=== PATIENT | male | born 1955 | race African-American/Black ===

== ENCOUNTER 2022-02-24 17:10 | Inpatient (IN) | payer BC ==
[2022-02-24 18:01] VITALS: BMI 26.1
[2022-02-24] MEDS ORDERED: ACETAMINOPHEN 325 MG TABLET (FP) PO PRN ×2 (19:21)
[2022-02-24] MEDS ORDERED: LORazepam 1 MG TABLET PO PRN (19:21)
[2022-02-24] MEDS ORDERED: DICYCLOMINE HCL 10 MG CAPSULE PO PRN (19:21)
[2022-02-24] MEDS ORDERED: NALOXONE HCL 0.4 MG/ML VIAL IM PRN (19:21)
[2022-02-24] MEDS ORDERED: BENZOCAINE/MENTHOL (CHLORASEPTIC ) LOZENGE MM PRN (19:21)
[2022-02-24] MEDS ORDERED: MAG HYDROX/AL HYDROX/SIMETH 30 ML UNIT-DOSE CUP PO PRN (19:21)
[2022-02-24] MEDS ORDERED: METHOCARBAMOL 500 MG TABLET PO PRN (19:21)
[2022-02-24] MEDS ORDERED: IBUPROFEN 600 MG TABLET (FP) PO PRN (19:21)
[2022-02-24] MEDS ORDERED: BISMUTH SUBSALICYLATE 524 MG/30 ML PO PRN (19:21)
[2022-02-24] MEDS ORDERED: NALOXONE HCL (KLOXXADO) 8 MG SPRAY NS PRN (19:21)
[2022-02-24] MEDS ORDERED: POLYETHYLENE GLYCOL (HEALTHYLAX) 3350 17 GM PACKET PO PRN (19:21)
[2022-02-24] MEDS ORDERED: MAGNESIUM HYDROX 2400MG/30ML ORAL SUSPENSION 30 ML CUP PO PRN (19:21)
[2022-02-24] MEDS ORDERED: NICOTINE 10 MG CARTRIDGE (INHALER) IH PRN (19:21)
[2022-02-24] MEDS ORDERED: IBUPROFEN 400 MG TABLET (FP) PO PRN (19:21)
[2022-02-24] MEDS ORDERED: LOPERAMIDE HCL 2 MG CAPSULE PO PRN (19:21)
[2022-02-24] MEDS ORDERED: LORazepam 1 MG TABLET ONE (20:41)
[2022-02-24] MEDS ORDERED: MELATONIN 5 MG TABLETS PO SCH (22:00)
[2022-02-24] MEDS ORDERED: THIAMINE HCL 100 MG TABLET (FP) PO SCH (22:00)
[2022-02-24] MEDS: LORazepam 2 MG TABLET PO SCH (22:57)
[2022-02-25] MEDS: LORazepam 2 MG TABLET PO SCH ×3 (06:02→18:12)
[2022-02-25] MEDS ORDERED: PRENATAL VITAMINS W/ FOLIC ACID TABLET (FP) PO SCH (10:00)
[2022-02-25 10:34] LABS: MCH 22.2 pg (25.7-33.7); MCHC 29.3 g/dl (32.0-35.9); MEAN CELL VOLUME 76.1 fl (80-96); PLATELET COUNT 431 10^3/uL (134-434); RBC 2.24 M/mm3 (4.00-5.60); RDW 21.2 % (11.9-15.9)
[2022-02-25 10:41] LABS: WHITE BLOOD COUNT 7.3 K/mm3 (4.0-10.0)
[2022-02-25 10:56] LABS: ALBUMIN 2.2 g/dl (3.4-5.0); BLOOD UREA NITROGEN 12.7 mg/dL (7-18); CALCIUM 7.8 mg/dL (8.5-10.1)
[2022-02-25 10:59] LABS: CREATININE 0.7 mg/dL (0.55-1.3)
[2022-02-25 11:01] LABS: BILIRUBIN,TOTAL 0.6 mg/dL (0.2-1); TOT PROT 6.5 g/dl (6.4-8.2)
[2022-02-25] MEDS ORDERED: cloNIDine HCL 0.1 MG TABLET PO PRN (11:31)
[2022-02-25] MEDS ORDERED: methaDONE HCL 10 MG TABLET (FOR DETOX USE ONLY) PO ONE (12:00)
[2022-02-25 13:02] VITALS: BP 145/65; PULSE 71; RESP 18; TEMP 97.3
[2022-02-26] MEDS ORDERED: LORazepam 1 MG TABLET PO SCH (05:00)
[2022-02-27] MEDS ORDERED: LORazepam 0.5 MG TABLET PO PRN
[2022-02-27] MEDS ORDERED: LORazepam 0.5 MG TABLET PO SCH (05:00)
[2022-02-27] MEDS ORDERED: methaDONE HCL 10 MG TABLET (FOR DETOX USE ONLY) PO ONE (10:00)
[2022-02-28] MEDS ORDERED: LORazepam 0.5 MG TABLET PO ONE (05:00)
[2022-03-01] MEDS ORDERED: methaDONE HCL 10 MG TABLET (FOR DETOX USE ONLY) PO ONE (10:00)
== END 2022-02-25 20:19 | disposition short-term general hospital (02) | DRG 897 ==
LOC: YASAS 17:10 → Y6N 20:07
PROVIDERS: ADMIT Allergy & Immunology; ATTEND Surgery
PROC: HZ2ZZZZ Detoxification Services for Substance Abuse Treatment (ICD-10-PCS; principal; 2022-02-24)
DX: F11.23 Opioid dependence with withdrawal (principal); L97.919 Non-pressure chronic ulcer of unspecified part of right lower leg with unspecified severity; F10.230 Alcohol dependence with withdrawal, uncomplicated; F41.8 Other specified anxiety disorders; D64.9 Anemia, unspecified; I73.89 Other specified peripheral vascular diseases; M54.50 Low back pain, unspecified; G89.29 Other chronic pain; Z28.310 Unvaccinated for COVID-19; Z28.9 Immunization not carried out for unspecified reason; Z59.02 Unsheltered homelessness
CPT/HCPCS: 36415; 80053; 85027; 86780; C9803-CS; U0003; U0005

== ENCOUNTER 2022-02-25 14:17 | Inpatient (IN) | payer BC ==
[2022-02-25 14:58] VITALS: RESP 18; BMI 25.8
[2022-02-25 18:22] LABS: INR 1.18 (0.83-1.09); PROTHROMBIN TIME (PATIENT) 13.6 SEC (9.7-13.0)
[2022-02-25 18:24] LABS: ACTIVATED PTT 28.4 SECONDS (25.2-36.5)
[2022-02-25] MEDS ORDERED: VANCOMYCIN 1,500 MG in DEXTROSE 5%-WATER - 250 ML IVPB ONE (18:39)
[2022-02-25] MEDS ORDERED: CEFAZOLIN 1 GM/D5W 1 GM/50 ML BAG IVPB ONE (18:40)
[2022-02-25 18:55] LABS: BASO % 0.2 % (0-2.0); EOS % 0.7 % (0-4.5); HEMATOCRIT 17.3 % (35.4-49); LYMPH % 22.1 % (8-40); MCHC 29.2 g/dl (32.0-35.9); MEAN CELL VOLUME 75.2 fl (80-96); MEAN PLT VOLUME 6.9 fl (7.5-11.1); MONO % 11.8 % (3.8-10.2); NEUT % 65.2 % (42.8-82.8); PLATELET COUNT 416 10^3/uL (134-434); RDW 21.4 % (11.9-15.9)
[2022-02-25] MEDS ORDERED: ceFAZolin SODIUM 1 GM VIAL ONE (18:57)
[2022-02-25 19:20] LABS: BLOOD UREA NITROGEN 14.2 mg/dL (7-18); HEMOGLOBIN 5.1 GM/dL (11.7-16.9)
[2022-02-25 19:21] LABS: ALBUMIN 2.4 g/dl (3.4-5.0)
[2022-02-25 19:24] LABS: BILIRUBIN,TOTAL 0.2 mg/dL (0.2-1); CREATININE 0.8 mg/dL (0.55-1.3); TOT PROT 6.8 g/dl (6.4-8.2)
[2022-02-25 19:52] LABS: ANISOCYTOSIS 1+; MACROCYTOSIS 0; PLATELET ESTIMATE INCREASED; ROULEAU 2+
[2022-02-25] MEDS ORDERED: VANCOMYCIN HCL 1,500 MG in DEXTROSE 5%-WATER - 250 ML IVPB SCH ×2 (21:52→22:00)
[2022-02-25] MEDS ORDERED: LACTATED RINGERS SOLUTION 1,000 ML/1,000 ML INFUS.BAG IV SCH (23:00)
[2022-02-25] MEDS: PANTOPRAZOLE SODIUM 40 MG VIAL IVPUSH SCH (23:58)
[2022-02-26] MEDS: VANCOMYCIN PREMIX 1.5 GM 1,500 MG/300 ML BAG IVPB SCH ×2 (00:04→08:07)
[2022-02-26] MEDS ORDERED: VANCOMYCIN HCL 1,500 MG in DEXTROSE 5%-WATER - 250 ML IVPB SCH (10:00)
[2022-02-26] MEDS: FOLIC ACID 1 MG TABLET (FP) PO SCH (10:42)
[2022-02-26] MEDS: PANTOPRAZOLE SODIUM 40 MG VIAL IVPUSH SCH ×2 (11:06→21:33)
[2022-02-26] MEDS: THIAMINE HCL 200 MG/2 ML VIAL IVPB SCH (11:07)
[2022-02-26 11:28] LABS: BASO % 0.4 % (0-2.0); EOS % 0.2 % (0-4.5); HEMATOCRIT 23.5 % (35.4-49); HEMOGLOBIN 7.2 GM/dL (11.7-16.9); LYMPH % 18.7 % (8-40); MCH 23.5 pg (25.7-33.7); MCHC 30.7 g/dl (32.0-35.9); MEAN CELL VOLUME 76.6 fl (80-96); MEAN PLT VOLUME 6.9 fl (7.5-11.1); MONO % 7.9 % (3.8-10.2); NEUT % 72.8 % (42.8-82.8); PLATELET COUNT 422 10^3/uL (134-434); RBC 3.06 M/mm3 (4.00-5.60); RDW 21.6 % (11.9-15.9); WHITE BLOOD COUNT 6.7 K/mm3 (4.0-10.0)
[2022-02-26 11:47] LABS: ALBUMIN 2.6 g/dl (3.4-5.0); BLOOD UREA NITROGEN 12.2 mg/dL (7-18); CALCIUM 8.3 mg/dL (8.5-10.1); MAGNESIUM 1.9 mg/dL (1.8-2.4)
[2022-02-26 11:49] LABS: CREATININE 0.8 mg/dL (0.55-1.3); PHOSPHOROUS 2.3 mg/dL (2.5-4.9)
[2022-02-26 11:52] LABS: BILIRUBIN,TOTAL 0.8 mg/dL (0.2-1); TOT PROT 7.6 g/dl (6.4-8.2)
[2022-02-26] MEDS: CEFTRIAXONE 1 GM in DEXTROSE 5%-WATER - 50 ML IVPB SCH (12:07)
[2022-02-26] MEDS ORDERED: cloNIDine HCL 0.1 MG TABLET PO PRN (13:53)
[2022-02-26] MEDS ORDERED: ACETAMINOPHEN 500 MG TABLET (FP) PO PRN (13:56)
[2022-02-26] MEDS ORDERED: TRIMETHOBENZAMIDE HCL 200MG/2ML INJ IM PRN (13:56)
[2022-02-26] MEDS ORDERED: ACETAMINOPHEN 1000 MG/100 ML BAG IVPB PRN (13:56)
[2022-02-26] MEDS: GABAPENTIN 300 MG CAPSULE PO SCH ×2 (14:28→21:31)
[2022-02-26 19:57] LABS: HEMATOCRIT 23.9 % (35.4-49); HEMOGLOBIN 7.3 GM/dL (11.7-16.9); MCH 24.2 pg (25.7-33.7); MCHC 30.6 g/dl (32.0-35.9); MEAN PLT VOLUME 7.3 fl (7.5-11.1); PLATELET COUNT 400 10^3/uL (134-434); RBC 3.03 M/mm3 (4.00-5.60); WHITE BLOOD COUNT 6.5 K/mm3 (4.0-10.0)
[2022-02-26] MEDS: MELATONIN 5 MG TABLETS PO SCH (21:31)
[2022-02-26] MEDS: POLYETHYLENE GLYCOL (HEALTHYLAX) 3350 17 GM PACKET PO SCH (21:43)
[2022-02-27] MEDS: GABAPENTIN 300 MG CAPSULE PO SCH ×2 (09:30→21:43)
[2022-02-27] MEDS: FOLIC ACID 1 MG TABLET (FP) PO SCH (09:31)
[2022-02-27] MEDS: THIAMINE HCL 200 MG/2 ML VIAL IVPB SCH (09:33)
[2022-02-27] MEDS: PANTOPRAZOLE SODIUM 40 MG VIAL IVPUSH SCH ×2 (09:33→21:56)
[2022-02-27] MEDS: POLYETHYLENE GLYCOL (HEALTHYLAX) 3350 17 GM PACKET PO SCH ×2 (09:47→21:55)
[2022-02-27] MEDS ORDERED: methaDONE HCL 10 MG TABLET PO ONE (10:00)
[2022-02-27 10:34] LABS: CALCIUM 8.3 mg/dL (8.5-10.1)
[2022-02-27] MEDS: CEFTRIAXONE 1 GM in DEXTROSE 5%-WATER - 50 ML IVPB SCH (10:35)
[2022-02-27 10:37] LABS: CREATININE 0.8 mg/dL (0.55-1.3)
[2022-02-27] MEDS ORDERED: BISACODYL 5 MG TABLET.DR (FP) PO ONE (16:00)
[2022-02-27] MEDS ORDERED: PEG 3350/NA SULF BICARB CL/KCL 4000 ML SOLN.RECON PO ONE (17:00)
[2022-02-27 17:12] LABS: BASO % 2.5 % (0-2.0); EOS % 1.3 % (0-4.5); HEMATOCRIT 28.8 % (35.4-49); LYMPH % 24.4 % (8-40); MCH 24.5 pg (25.7-33.7); MCHC 31.3 g/dl (32.0-35.9); MEAN CELL VOLUME 78.3 fl (80-96); MEAN PLT VOLUME 7.3 fl (7.5-11.1); NEUT % 55.8 % (42.8-82.8); PLATELET COUNT 412 10^3/uL (134-434); RBC 3.68 M/mm3 (4.00-5.60); RDW 20.4 % (11.9-15.9); WHITE BLOOD COUNT 6.3 K/mm3 (4.0-10.0)
[2022-02-27] MEDS: MELATONIN 5 MG TABLETS PO SCH (21:55)
[2022-02-28] MEDS: CEFTRIAXONE 1 GM in DEXTROSE 5%-WATER - 50 ML IVPB SCH (09:32)
[2022-02-28] MEDS: FOLIC ACID 1 MG TABLET (FP) PO SCH (09:32)
[2022-02-28] MEDS: THIAMINE HCL 200 MG/2 ML VIAL IVPB SCH (09:32)
[2022-02-28] MEDS: POLYETHYLENE GLYCOL (HEALTHYLAX) 3350 17 GM PACKET PO SCH ×2 (09:32→21:30)
[2022-02-28] MEDS: PANTOPRAZOLE SODIUM 40 MG VIAL IVPUSH SCH (09:32)
[2022-02-28] MEDS: GABAPENTIN 300 MG CAPSULE PO SCH ×2 (09:32→21:31)
[2022-02-28 17:12] LABS: BASO % 0.6 % (0-2.0); EOS % 0.7 % (0-4.5); HEMATOCRIT 32.5 % (35.4-49); HEMOGLOBIN 9.9 GM/dL (11.7-16.9); LYMPH % 25.4 % (8-40); MCH 24.4 pg (25.7-33.7); MCHC 30.6 g/dl (32.0-35.9); MEAN CELL VOLUME 79.5 fl (80-96); MEAN PLT VOLUME 7.5 fl (7.5-11.1); MONO % 12.7 % (3.8-10.2); NEUT % 60.6 % (42.8-82.8); PLATELET COUNT 453 10^3/uL (134-434); RBC 4.08 M/mm3 (4.00-5.60); RDW 21.1 % (11.9-15.9); WHITE BLOOD COUNT 6.2 K/mm3 (4.0-10.0)
[2022-02-28 17:40] LABS: CALCIUM 8.3 mg/dL (8.5-10.1)
[2022-02-28 17:44] LABS: CREATININE 0.9 mg/dL (0.55-1.3)
[2022-02-28] MEDS: PANTOPRAZOLE 40 MG TABLET PO SCH (21:32)
[2022-02-28] MEDS: MELATONIN 5 MG TABLETS PO SCH (21:32)
[2022-03-01] MEDS: GABAPENTIN 300 MG CAPSULE PO SCH (09:52)
[2022-03-01] MEDS: CEFTRIAXONE 1 GM in DEXTROSE 5%-WATER - 50 ML IVPB SCH (09:53)
[2022-03-01] MEDS: THIAMINE HCL 200 MG/2 ML VIAL IVPB SCH (09:53)
[2022-03-01] MEDS: PANTOPRAZOLE 40 MG TABLET PO SCH (09:53)
[2022-03-01] MEDS: FOLIC ACID 1 MG TABLET (FP) PO SCH (09:53)
[2022-03-01] MEDS: POLYETHYLENE GLYCOL (HEALTHYLAX) 3350 17 GM PACKET PO SCH (09:54)
[2022-03-01] MEDS ORDERED: methaDONE HCL 10 MG TABLET PO ONE (10:00)
[2022-03-01 10:52] LABS: BASO % 0.3 % (0-2.0); EOS % 0.9 % (0-4.5); HEMATOCRIT 33.3 % (35.4-49); LYMPH % 22.2 % (8-40); MCH 23.9 pg (25.7-33.7); MEAN CELL VOLUME 79.4 fl (80-96); MEAN PLT VOLUME 7.6 fl (7.5-11.1); MONO % 11.8 % (3.8-10.2); NEUT % 64.8 % (42.8-82.8); PLATELET COUNT 476 10^3/uL (134-434); RDW 21.4 % (11.9-15.9); WHITE BLOOD COUNT 6.3 K/mm3 (4.0-10.0)
[2022-03-01 11:21] LABS: ALBUMIN 2.5 g/dl (3.4-5.0); CALCIUM 8.4 mg/dL (8.5-10.1)
[2022-03-01 11:22] LABS: BLOOD UREA NITROGEN 20.1 mg/dL (7-18); MAGNESIUM 2.1 mg/dL (1.8-2.4)
[2022-03-01 11:25] LABS: CREATININE 0.9 mg/dL (0.55-1.3); PHOSPHOROUS 2.5 mg/dL (2.5-4.9)
[2022-03-01 11:26] LABS: BILIRUBIN,TOTAL 0.4 mg/dL (0.2-1); TOT PROT 7.3 g/dl (6.4-8.2)
[2022-03-01 12:18] LABS: ANISOCYTOSIS 3+; MACROCYTOSIS 0; TARGET CELLS 1+
[2022-03-01 17:46] VITALS: BP 120/74; PULSE 60; TEMP 98.4
== END 2022-03-01 18:04 | disposition other institution (70) | DRG 378 ==
LOC: JER 14:17 → JERBED 20:17 → J8W 02-26 02:19
PROVIDERS: ADMIT Internal Medicine; ATTEND Internal Medicine
PROC: 30233N1 Transfusion of Nonautologous Red Blood Cells into Peripheral Vein, Percutaneous Approach (ICD-10-PCS; principal; 2022-02-26)
DX: K92.2 Gastrointestinal hemorrhage, unspecified (principal); D62 Acute posthemorrhagic anemia; L03.116 Cellulitis of left lower limb; L97.919 Non-pressure chronic ulcer of unspecified part of right lower leg with unspecified severity; F19.20 Other psychoactive substance dependence, uncomplicated; R73.9 Hyperglycemia, unspecified; R00.1 Bradycardia, unspecified; F10.20 Alcohol dependence, uncomplicated
CPT/HCPCS: 0241U-QW; 36415; 36430; 80048; 80053; 80307; 82272; 82607; 82728; 83540; 83550; 83615; 83735; 84100; 85025; 85027; 85610; 85730; 86850; 86900; 86901; 86922; 93005; 93010; 99285-25; P9058

== ENCOUNTER 2022-03-01 18:32 | Inpatient (IN) | payer BC ==
[2022-03-01 19:41] VITALS: BMI 23.0
[2022-03-01] MEDS ORDERED: POLYETHYLENE GLYCOL (HEALTHYLAX) 3350 17 GM PACKET PO PRN (20:34)
[2022-03-01] MEDS ORDERED: LOPERAMIDE HCL 2 MG CAPSULE PO PRN (20:34)
[2022-03-01] MEDS ORDERED: P-EPHED 60MG/TRIPROLIDI 2.5MG TABLET PO PRN (20:34)
[2022-03-01] MEDS ORDERED: ACETAMINOPHEN 325 MG TABLET (FP) PO PRN ×2 (20:34)
[2022-03-01] MEDS ORDERED: IBUPROFEN 600 MG TABLET (FP) PO PRN (20:34)
[2022-03-01] MEDS ORDERED: hydrOXYzine PAMOATE 25 MG CAPSULE (FP) PO PRN (20:34)
[2022-03-01] MEDS ORDERED: BENZOCAINE/MENTHOL (CHLORASEPTIC ) LOZENGE MM PRN (20:34)
[2022-03-01] MEDS ORDERED: DICYCLOMINE HCL 10 MG CAPSULE PO PRN (20:34)
[2022-03-01] MEDS ORDERED: guaiFENesin 200 MG/10 ML 10 ML UNIT-DOSE CUPS PO PRN (20:34)
[2022-03-01] MEDS ORDERED: IBUPROFEN 400 MG TABLET (FP) PO PRN (20:34)
[2022-03-01] MEDS ORDERED: NALOXONE HCL (KLOXXADO) 8 MG SPRAY NS PRN (20:34)
[2022-03-01] MEDS ORDERED: MAG HYDROX/AL HYDROX/SIMETH 30 ML UNIT-DOSE CUP PO PRN (20:34)
[2022-03-01] MEDS ORDERED: NALOXONE HCL 0.4 MG/ML VIAL IM PRN (20:34)
[2022-03-01] MEDS ORDERED: MAGNESIUM HYDROX 2400MG/30ML ORAL SUSPENSION 30 ML CUP PO PRN (20:34)
[2022-03-01] MEDS ORDERED: ONDANSETRON *ODT* 4 MG TABLET SL PRN (20:34)
[2022-03-01] MEDS ORDERED: BISMUTH SUBSALICYLATE 524 MG/30 ML PO PRN (20:34)
[2022-03-01] MEDS: GABAPENTIN 300 MG CAPSULE PO SCH (22:36)
[2022-03-01] MEDS: PANTOPRAZOLE 40 MG TABLET PO SCH (22:36)
[2022-03-01] MEDS: CEPHALEXIN MONOHYDRATE 500 MG CAPSULE (UD) PO SCH (22:36)
[2022-03-01] MEDS: THIAMINE HCL 100 MG TABLET (FP) PO SCH (22:37)
[2022-03-02] MEDS ORDERED: methaDONE HCL 10 MG TABLET PO ONE (10:00)
[2022-03-02] MEDS: PRENATAL VITAMINS W/ FOLIC ACID TABLET (FP) PO SCH (10:35)
[2022-03-02] MEDS: CEPHALEXIN MONOHYDRATE 500 MG CAPSULE (UD) PO SCH ×2 (10:35→22:40)
[2022-03-02] MEDS: GABAPENTIN 300 MG CAPSULE PO SCH ×2 (10:35→22:39)
[2022-03-02] MEDS: PANTOPRAZOLE 40 MG TABLET PO SCH ×2 (10:40→22:40)
[2022-03-02] MEDS: THIAMINE HCL 100 MG TABLET (FP) PO SCH (22:40)
[2022-03-03] MEDS: GABAPENTIN 300 MG CAPSULE PO SCH ×2 (10:30→22:17)
[2022-03-03] MEDS: PANTOPRAZOLE 40 MG TABLET PO SCH ×2 (10:30→22:17)
[2022-03-03] MEDS: PRENATAL VITAMINS W/ FOLIC ACID TABLET (FP) PO SCH (10:30)
[2022-03-03] MEDS: CEPHALEXIN MONOHYDRATE 500 MG CAPSULE (UD) PO SCH ×2 (10:30→22:18)
[2022-03-03 21:25] VITALS: BP 116/53; PULSE 75; RESP 16; TEMP 98.4
[2022-03-03] MEDS: THIAMINE HCL 100 MG TABLET (FP) PO SCH (22:17)
[2022-03-04] MEDS: GABAPENTIN 300 MG CAPSULE PO SCH (09:00)
[2022-03-04] MEDS: PRENATAL VITAMINS W/ FOLIC ACID TABLET (FP) PO SCH (09:00)
[2022-03-04] MEDS: PANTOPRAZOLE 40 MG TABLET PO SCH (09:00)
[2022-03-04] MEDS: CEPHALEXIN MONOHYDRATE 500 MG CAPSULE (UD) PO SCH (09:00)
== END 2022-03-04 09:09 | disposition home or self-care (01) | DRG 897 ==
LOC: YASAS 18:32 → Y6N 20:50
PROVIDERS: ADMIT Allergy & Immunology; ATTEND Surgery
PROC: HZ2ZZZZ Detoxification Services for Substance Abuse Treatment (ICD-10-PCS; principal; 2022-03-01)
DX: F11.23 Opioid dependence with withdrawal (principal); L97.919 Non-pressure chronic ulcer of unspecified part of right lower leg with unspecified severity; F10.230 Alcohol dependence with withdrawal, uncomplicated; F17.210 Nicotine dependence, cigarettes, uncomplicated; D64.9 Anemia, unspecified; Z59.00 Homelessness unspecified
CPT/HCPCS: 71046-TC-FY; C9803-CS; U0003; U0005